=== PATIENT | male | born 1955 | race Caucasian/White ===

== ENCOUNTER → 2016-11-22 | Day surgery (SDC) | payer OTHER ==
[~2016-11-22] MED LIST: AMLODIPINE BESY10 MG PO; ECOTRIN81 M1 PO; FISH OIL 1,001000 M1 PO; LIPITOR20 MG PO; LO-DOSE ASPIRIN81 M1 PO; LORTAB 7.51 TAB PO; NAPROSYN500 MG PO; NORVASC10 MG PO; ZOLOFT100 MG PO; ZOLOFT50 MG PO
--- NOTE | ~2016-11-22 | OR ---
Unit #: [id number] #: [id number] Patient: STEFANIE RIVERA [id number] [address] [address] [id number] MR#: [id number] NAME: STEFANIE RIVERA ROOM: Date of Procedure: 11/22/2016 Admission Date: 11/22/2016 Surgeon: Drew Dumont III, M.D. : 1955 Attending Physician: Drew Dumont III, M.D. Primary Care Physician: Ana Ch M.D. OPERATIVE REPORT PREOPERATIVE DIAGNOSIS Screening colonoscopy. Personal history of colon polyps. POSTOPERATIVE DIAGNOSIS Screening colonoscopy. Personal history of colon polyps. PROCEDURE PERFORMED Colonoscopy to cecum. ANESTHESIA 6 mg of Versed and 50 mg of Demerol. SPECIMEN None. COMPLICATIONS None apparent. INDICATIONS FOR PROCEDURE This is a 61-year-old gentleman who has a family history of colon cancer and a personal history of polyps. He is here today for a colonoscopy. DESCRIPTION OF PROCEDURE After consent was obtained, the patient was brought to the endoscopy suite and placed in the left lateral decubitus position. We titrated the above sedation, and I performed a rectal exam and did not feel any masses. The scope was placed within the rectal vault, air was insufflated, and I navigated the scope all the way to the cecum without any difficulty. He had normal mucosa. No evidence of any polyps or masses and no diverticular disease was seen. The scope was retroflexed within the rectum and no other masses were seen. The scope was then carefully withdrawn. The patient tolerated the procedure without any problems and returned to the recovery room in stable condition. Dictated by... Drew Dumont III, M.D. VCL/mauricel TD: 11/22/2016 07:32 JOB #: [id number] Unit #: [id number] #: [id number] Patient: STEFANIE RIVERA OPERATIVE REPORT Page 1 of 1 X Drew Dumont III, MD PROCEDURE OPERATIVE NOTE
== END | disposition home or self-care (01) ==
LOC: COPS 06:00
DX: Z12.11 Encounter for screening for malignant neoplasm of colon (principal); I10 Essential (primary) hypertension; F41.9 Anxiety disorder, unspecified; G47.30 Sleep apnea, unspecified; Z86.010 Personal history of colon polyps; Z80.0 Family history of malignant neoplasm of digestive organs; Z79.82 Long term (current) use of aspirin; Z79.899 Other long term (current) drug therapy; Z98.890 Other specified postprocedural states; Z90.49 Acquired absence of other specified parts of digestive tract
CPT/HCPCS: J2175; J2250